=== PATIENT | male | born 1965 | race Caucasian/White ===

== ENCOUNTER 2016-10-08 19:38 | Emergency (ER) | payer MEDICAID | END 2016-10-08 20:11 | disposition left against medical advice (07) | LOC: ER 19:39 | DX: Z53.21 Procedure and treatment not carried out due to patient leaving prior to being seen by health care provider (principal) ==

== ENCOUNTER 2017-02-18 20:14 | Emergency (ER) | payer MEDICAID ==
[~2017-02-18] VITALS: Ht 175.3 cm; Wt 88.5 kg
--- NOTE | 2017-02-18 20:30 | NUR ---
PT CAME IN FOR "CHILLS" AND FEELS SICK AND RIGHT SIDE BACK PAIN. PT LOOKS PALE, LETHARGIC WITH SLIGHT FEVER. AAOX3. SAFETY AND COMFORT MEASURES PROVIDED. WILL MONITOR.
[2017-02-18] MEDS ORDERED: ONDANSETRON HCL/PF 4 MG/2 ML VIAL ONE (20:51)
[2017-02-18] MEDS ORDERED: IV NS 0.9% 1,000 ML ONE (20:51)
[2017-02-18] MEDS ORDERED: MORPHINE SULFATE INJ 4 MG/ML DISP.SYRIN ONE (20:51)
[2017-02-18] MEDS ORDERED: IV NS 0.9% 1,000 ML BAG IV ONE (21:00)
[2017-02-18] MEDS ORDERED: MORPHINE SULFATE INJ 2 MG/ML DISP.SYRIN IV ONE (21:00)
[2017-02-18] MEDS ORDERED: ONDANSETRON HCL/PF 4 MG/2 ML VIAL IVP ONE (21:00)
--- NOTE | 2017-02-18 21:00 | NUR ---
IV ACCESS STARTED. BLOOD DRAWN FOR LABS. PT MEDICATED ORDERED.
[2017-02-18 21:06] LABS: BASOPHILS % (AUTO) 0.4 % (0.0-2.0); EOSINOPHILS # (AUTO) 0.1 /CMM (0.0-0.7); LYMPHOCYTES # (AUTO) 1.8 /CMM (0.8-4.8); MONOCYTES # (AUTO) 0.9 /CMM (0.1-1.30); NEUTROPHILS # (AUTO) 5.5 /CMM (1.8-8.9); WHITE BLOOD COUNT (AUTO) 8.3 K/uL (4.3-11.0)
[2017-02-18 21:07] LABS: EOSINOPHILS % (AUTO) 1.3 % (0.0-6.0); HEMATOCRIT 31 % (39-51); LYMPHOCYTES % (AUTO) 22.1 % (20.0-44.0); MEAN CORPUSCULAR HEMOGLOBIN 25 PG (26.0-33.0); MEAN CORPUSCULAR HGB CONC 32 g/dl (31.0-36.0); MEAN CORPUSCULAR VOLUME 76 fL (80-96); MONOCYTES % (AUTO) 11.3 % (2.0-12.0); NEUTROPHILS % (AUTO) 64.9 % (43.0-81.0); PLATELET COUNT (AUTO) 543 /CMM (150-450); RDW COEFFICIENT OF VARIATION 20.6 (11.5-15.0); RED BLOOD CELL COUNT(AUTO) 4.07 MIL/uL (4.5-6.0)
[2017-02-18 21:08] LABS: CARBON DIOXIDE 28 mmol/L (21-32); CHLORIDE 103 mmol/L (98-107); CREATININE 1.2 mg/dL (0.6-1.3); GLUCOSE 109 mg/dL (74-106); POTASSIUM 3.7 mmol/L (3.5-5.1); SODIUM SERUM 136 mmol/L (136-145); UREA NITROGEN, BLOOD 20 mg/dL (7-18)
[2017-02-18 21:10] LABS: INR 1.02 (0.87-1.13); PROTHROMBIN TIME 10.6 SECS (9.5-12.7)
--- NOTE | 2017-02-18 21:10 | NUR ---
XRAY DONE AT BS.
[2017-02-18 21:13] LABS: ALANINE AMINOTRANSFERASE 42 U/L (12-78); ALBUMIN 2.3 g/dL (3.4-5.0); ALKALINE PHOSPHATASE 113 U/L (46-116); ASPARTATE AMINOTRANSFERASE 24 U/L (15-37); BILIRUBIN,TOTAL 0.3 mg/dL (0.2-1.0); TOTAL PROTEIN, SERUM 7.9 g/dL (6.4-8.2)
[2017-02-18 21:19] LABS: APPEARANCE,URINE Clear (CLEAR); BILIRUBIN,URINE Negative (NEGATIVE); BLOOD, URINE Trace-intact Ery/uL (NEGATIVE); COLOR,URINE Yellow (YELLOW); KETONES,URINE Negative (NEGATIVE); LEUKOCYTE ESTERASE ,URINE Negative (NEGATIVE); NITRITE, URINE Negative (NEGATIVE); PH,URINE 5.5 (5.0-8.0); PROTEIN,URINE Trace mg/dl (NEGATIVE); UGLUCOSE Negative (NEGATIVE); UROBILINOGEN,URINE 0.2 EU/dL (0.2)
[2017-02-18 21:24] LABS: BILIRUBIN,DIRECT 0.1 mg/dL (0.0-0.2)
[2017-02-18 21:29] LABS: TROPONIN I < 0.017 ng/mL (0.00-0.056)
[2017-02-18 21:32] LABS: BACTERIA,URINE Rare /HPF (None Seen); SQUAMOUS EPITHELIAL CELL,UR Rare /HPF (None Seen); WBC,URINE NONE SEEN /HPF (0-3)
[2017-02-18 21:33] LABS: HYALINE CASTS, URINE Rare /LPF (None Seen); MUCUS,URINE Few /LPF (None Seen)
--- NOTE | 2017-02-18 22:35 | NUR ---
IV removed. Catheter intact and site benign. Pressure and 4x4 applied to site. No bleeding noted.
--- NOTE | 2017-02-18 22:44 | NUR ---
Patient discharged to home in stable condition. Written and verbal after care instructions given. Patient verbalizes understanding of instruction.
[2017-02-18 22:45] VITALS: BP 137/88
== END 2017-02-18 22:47 | disposition home or self-care (01) ==
LOC: ER 20:17
DX: R10.32 Left lower quadrant pain (principal); Z88.1 Allergy status to other antibiotic agents; Z88.8 Allergy status to other drugs, medicaments and biological substances; Z90.5 Acquired absence of kidney; Z85.528 Personal history of other malignant neoplasm of kidney
CPT/HCPCS: 36415; 71010; 80048; 80076; 81001; 83605; 84484; 85025; 85730; 87040 ×2; 87086; 87186; 93005; 96361; 96374; 96375; 99285; A4606; J2270; J2405; J7030; Z7610; 81000-TC

== ENCOUNTER 2017-05-21 22:56 | Emergency (ER) | payer BC ==
[~2017-05-21] VITALS: Ht 175.3 cm; Wt 77.1 kg
[~2017-05-21 22:56] MED LIST: ASPI81TA2 PO; HYDR-3028 PO; HYDR-3658 PO; MORP30CP13 PO; TRAM50TA2 PO
[2017-05-22 00:42] LABS: BASOPHILS % (AUTO) 0.1 % (0.0-2.0); EOSINOPHILS % (AUTO) 0.4 % (0.0-6.0); HEMATOCRIT 26 % (39-51); LYMPHOCYTES # (AUTO) 0.9 /CMM (0.8-4.8); MEAN CORPUSCULAR HEMOGLOBIN 22 PG (26.0-33.0); MEAN CORPUSCULAR HGB CONC 31 g/dl (31.0-36.0); MEAN CORPUSCULAR VOLUME 72 fL (80-96); NEUTROPHILS # (AUTO) 7.8 /CMM (1.8-8.9); NEUTROPHILS % (AUTO) 80.5 % (43.0-81.0); PLATELET COUNT (AUTO) 523 /CMM (150-450); RDW COEFFICIENT OF VARIATION 23.6 (11.5-15.0); RED BLOOD CELL COUNT(AUTO) 3.59 MIL/uL (4.5-6.0); WHITE BLOOD COUNT (AUTO) 9.7 K/uL (4.3-11.0)
[2017-05-22 00:45] LABS: INR 1.17 (0.87-1.13); PROTHROMBIN TIME 12.7 SECS (9.5-12.7)
--- NOTE | 2017-05-22 01:04 | NUR ---
BIB FAMILY, INFORMED BY PRIMARY MD TO GO TO THE HOSPITAL FOR LOW HEMOGLOBIN OF 6.9. WARM TO TOUCH, CAP REFILL <3 SEC. PT IS ON THE MONITOR. A/O X3. ST AT 110 BPM. BP 130/69. PT IN BED. PT COMFORTABLE AND DENIES PAIN.
[2017-05-22] MEDS ORDERED: IV NS 0.9% 1,000 ML BAG IV ONE (01:30)
[2017-05-22 01:47] LABS: TROPONIN I < 0.017 ng/mL (0.00-0.056)
[2017-05-22 01:48] LABS: CALCIUM, SERUM 9.7 mg/dL (8.5-10.1); CARBON DIOXIDE 25 mmol/L (21-32); CHLORIDE 101 mmol/L (98-107); GLUCOSE 104 mg/dL (74-106); POTASSIUM 4.3 mmol/L (3.5-5.1); SODIUM SERUM 137 mmol/L (136-145); UREA NITROGEN, BLOOD 18 mg/dL (7-18)
[2017-05-22] MEDS ORDERED: ONDANSETRON HCL/PF 4 MG/2 ML VIAL IV ONE (02:30)
[2017-05-22] MEDS ORDERED: MORPHINE SULFATE INJ 2 MG/ML DISP.SYRIN IV ONE ×2 (02:30→07:30)
[2017-05-22] MEDS ORDERED: IOHEXOL-350 100 ML VIAL IV ONE (02:52)
[2017-05-22] MEDS ORDERED: IV NS 0.9% 0 ML IV ONE (02:52)
[2017-05-22] MEDS ORDERED: LORAZEPAM INJ 2 MG/ML VIAL ONE (03:27)
[2017-05-22] MEDS ORDERED: LORAZEPAM INJ 2 MG/ML VIAL IV ONE (03:30)
--- NOTE | 2017-05-22 04:50 | NUR ---
PT TAKEN TO VQ SCAN.
[2017-05-22] MEDS ORDERED: MORPHINE SULFATE INJ 4 MG/ML DISP.SYRIN ONE (07:19)
[2017-05-22 07:55] VITALS: BP 122/83
[2017-05-22 08:04] LABS: APPEARANCE,URINE SL CLOUDY (CLEAR); BILIRUBIN,URINE NEGATIVE (NEGATIVE); BLOOD, URINE NEGATIVE Ery/uL (NEGATIVE); COLOR,URINE YELLOW (YELLOW); KETONES,URINE NEGATIVE (NEGATIVE); LEUKOCYTE ESTERASE ,URINE NEGATIVE (NEGATIVE); NITRITE, URINE NEGATIVE (NEGATIVE); PROTEIN,URINE TRACE mg/dl (NEGATIVE); UGLUCOSE NEGATIVE (NEGATIVE); UROBILINOGEN,URINE 0.2 EU/dL (0.2)
[2017-05-22 08:21] LABS: BACTERIA,URINE Rare /HPF (None Seen); RBC,URINE 0-2 /HPF (0-2); SQUAMOUS EPITHELIAL CELL,UR Rare /HPF (None Seen); WBC,URINE 0-2 /HPF (0-3)
[2017-05-22 08:40] LABS: BAND % (MANUAL) 1 % (0.0-5.0); LYMPHOCYTES % (MANUAL) 10 % (16-48); MONOCYTES % (MANUAL) 7 % (0-11.0); NEUTROPHILS % (MANUAL) 82 (42-76)
[2017-05-22 14:34] LABS: ALANINE AMINOTRANSFERASE 22 U/L (12-78); ALBUMIN 1.6 g/dL (3.4-5.0); ALKALINE PHOSPHATASE 177 U/L (46-116); ASPARTATE AMINOTRANSFERASE 33 U/L (15-37); BILIRUBIN,DIRECT 0.1 mg/dL (0.0-0.2); BILIRUBIN,TOTAL 0.2 mg/dL (0.2-1.0); TOTAL PROTEIN, SERUM 8.4 g/dL (6.4-8.2)
== END 2017-05-22 07:56 | disposition home or self-care (01) ==
LOC: ER 23:01
DX: D64.9 Anemia, unspecified (principal); C78.00 Secondary malignant neoplasm of unspecified lung; C64.9 Malignant neoplasm of unspecified kidney, except renal pelvis; C79.51 Secondary malignant neoplasm of bone; Z79.82 Long term (current) use of aspirin; Z85.528 Personal history of other malignant neoplasm of kidney; Z88.1 Allergy status to other antibiotic agents; Z88.8 Allergy status to other drugs, medicaments and biological substances
CPT/HCPCS: 36415 ×2; 71010; 78582; 80048; 80076; 81001; 83605; 84484; 85025; 85730; 86850; 87040 ×2; 87081; 87086; 93005; 96361; 96374; 96375; 96376; 99285; A4606; A9540; A9567; J2060; J2270 ×2; J7030; Z7610; 81000-TC; J7050; Q9967

== ENCOUNTER 2017-05-27 11:00 | Emergency (ER) | payer BC, MEDICAID ==
--- NOTE | 2017-05-27 11:38 | NUR ---
JOHN FROM HOME DUE TO SOB AND WEAKNESS X 10 DAYS. PATIENT IS AAO4. APPEARS IN NO APPARENT DISTRESS. VERBALIZED N/V EVERYDAY. PATIENT IS AFEBRILE. VSS
--- NOTE | 2017-05-27 11:38 | NUR ---
Note reginorachid in EDM - 05/27/17 at 1154 by MEGHA JOHN AND ABDIEL FROM [facility] FOR PSYCE EVALUATION. PATIENT VERBALIZED " I WANNA JUMPED ON A TRUCK" PT IS AAO3. APPEARS IN NO APPARENT DISTRESS. AFEBRILE. VSS
--- NOTE | 2017-05-27 11:56 | NUR ---
MD [place] AT BS
[2017-05-27 12:05] LABS: BASOPHILS % (AUTO) 0.2 % (0.0-2.0); EOSINOPHILS # (AUTO) 0.1 /CMM (0.0-0.7); EOSINOPHILS % (AUTO) 0.7 % (0.0-6.0); HEMATOCRIT 23 % (39-51); HEMOGLOBIN 7.3 g/dL (13.5-17.5); LYMPHOCYTES # (AUTO) 1.1 /CMM (0.8-4.8); LYMPHOCYTES % (AUTO) 11.9 % (20.0-44.0); MEAN CORPUSCULAR HEMOGLOBIN 23 PG (26.0-33.0); MEAN CORPUSCULAR HGB CONC 33 g/dl (31.0-36.0); MEAN CORPUSCULAR VOLUME 70 fL (80-96); MONOCYTES % (AUTO) 10.6 % (2.0-12.0); NEUTROPHILS % (AUTO) 76.6 % (43.0-81.0); PLATELET COUNT (AUTO) 559 /CMM (150-450); RED BLOOD CELL COUNT(AUTO) 3.21 MIL/uL (4.5-6.0); WHITE BLOOD COUNT (AUTO) 9.2 K/uL (4.3-11.0)
[2017-05-27 12:06] LABS: CALCIUM, SERUM 9.1 mg/dL (8.5-10.1); CARBON DIOXIDE 26 mmol/L (21-32); CHLORIDE 101 mmol/L (98-107); CREATININE 0.8 mg/dL (0.6-1.3); GLUCOSE 103 mg/dL (74-106); POTASSIUM 3.7 mmol/L (3.5-5.1); SODIUM SERUM 135 mmol/L (136-145); UREA NITROGEN, BLOOD 17 mg/dL (7-18)
[2017-05-27 12:15] LABS: TROPONIN I < 0.017 ng/mL (0.00-0.056)
[2017-05-27 13:07] LABS: BAND % (MANUAL) 1 % (0.0-5.0); LYMPHOCYTES % (MANUAL) 9 % (16-48); MONOCYTES % (MANUAL) 7 % (0-11.0); NEUTROPHILS % (MANUAL) 83 (42-76)
[2017-05-27] MEDS ORDERED: IBUP-1482 PO (15:39)
[2017-05-27] MEDS ORDERED: CHLO25TA23 PO (15:39)
[2017-05-27] MEDS ORDERED: PROC10TA PO (15:39)
[2017-05-27] MEDS ORDERED: HYDR-548 PO (15:39)
[2017-05-27] MEDS ORDERED: CHOL100044 PO (15:39)
[2017-05-27] MEDS ORDERED: MORP30TA PO (15:39)
[2017-05-27] MEDS ORDERED: METO-295 PO (15:39)
[2017-05-27] MEDS ORDERED: ACET-2605 PO (15:39)
--- NOTE | 2017-05-27 15:40 | NUR ---
STARTED BLOOD TRANSFUSION @80CC/HR T-98.1 P 107 BP 107/60 R18
--- NOTE | 2017-05-27 16:03 | NUR ---
CONT ON BLOOD TRANSFUSION. NO ADVERSE REACTION NOTED
[2017-05-27 18:11] VITALS: BP 124/80
--- NOTE | 2017-05-27 18:12 | NUR ---
Patient discharged to home in stable condition. Written and verbal after care instructions given. Patient verbalizes understanding of instruction.
== END 2017-05-27 18:13 | disposition home or self-care (01) ==
LOC: ER 11:03
DX: C64.9 Malignant neoplasm of unspecified kidney, except renal pelvis (principal); C79.51 Secondary malignant neoplasm of bone; D64.81 Anemia due to antineoplastic chemotherapy; Z79.82 Long term (current) use of aspirin; Z85.528 Personal history of other malignant neoplasm of kidney; R00.0 Tachycardia, unspecified; Z88.8 Allergy status to other drugs, medicaments and biological substances; Z88.1 Allergy status to other antibiotic agents; Z91.041 Radiographic dye allergy status
CPT/HCPCS: 36415; 71010-TC; 80048-TC; 82962-TC; 84484-TC; 85025-TC; 86850-TC; 86921-TC; A4606; P9016-BL; Z7610

== ENCOUNTER 2017-07-07 14:05 | Emergency (ER) | payer BC ==
[~2017-07-07] VITALS: Ht 175.3 cm; Wt 59.0 kg
[~2017-07-07 14:05] MED LIST changes: +ACET-2605 PO; +CHLO25TA23 PO; +CHOL100044 PO; -HYDR-3028 PO; -HYDR-3658 PO; +HYDR-548 PO; +IBUP-1482 PO; +METO-295 PO; -MORP30CP13 PO; +MORP30TA PO; +PROC10TA PO; -TRAM50TA2 PO
--- NOTE | 2017-07-07 14:10 | NUR ---
BIB FAMILY FROM HOME DT SOB AND GENERALIZED WEAKNESS. PATIENT IS AAO4. APPEARS IN MILD DISTRESS. RESPIRATION EVEN AND UNLABORED. PATIENT SATING 95% ON ROOM AIR, PATIENT HAS METASTASIS KIDNEY CANCER. PATIENT'S VSS AT THIS TIME.
--- NOTE | 2017-07-07 14:30 | NUR ---
LYNETTE IV ACCESSED TO L[facility]NETTE. BLOOD SAMPLE SENT TO LAB
[2017-07-07 14:51] LABS: BASOPHILS % (AUTO) 0.1 % (0.0-2.0); EOSINOPHILS % (AUTO) 0.2 % (0.0-6.0); HEMATOCRIT 22 % (39-51); LYMPHOCYTES # (AUTO) 1.1 /CMM (0.8-4.8); LYMPHOCYTES % (AUTO) 8.3 % (20.0-44.0); MEAN CORPUSCULAR HEMOGLOBIN 22 PG (26.0-33.0); MEAN CORPUSCULAR HGB CONC 31 g/dl (31.0-36.0); MEAN CORPUSCULAR VOLUME 71 fL (80-96); MONOCYTES # (AUTO) 1.1 /CMM (0.1-1.30); MONOCYTES % (AUTO) 8.5 % (2.0-12.0); NEUTROPHILS # (AUTO) 10.6 /CMM (1.8-8.9); NEUTROPHILS % (AUTO) 82.9 % (43.0-81.0); PLATELET COUNT (AUTO) 444 /CMM (150-450); RDW COEFFICIENT OF VARIATION 20.2 (11.5-15.0); RED BLOOD CELL COUNT(AUTO) 3.13 MIL/uL (4.5-6.0); WHITE BLOOD COUNT (AUTO) 12.8 K/uL (4.3-11.0)
[2017-07-07 14:58] LABS: CALCIUM, SERUM 9.6 mg/dL (8.5-10.1); CREATININE 0.7 mg/dL (0.6-1.3); POTASSIUM 4.1 mmol/L (3.5-5.1)
[2017-07-07 15:02] LABS: INR 1.16 (0.87-1.13); PROTHROMBIN TIME 12.1 SECS (9.5-12.7)
[2017-07-07 15:09] LABS: ALBUMIN 1.7 g/dL (3.4-5.0); BILIRUBIN,DIRECT 0.2 mg/dL (0.0-0.2); BILIRUBIN,TOTAL 0.6 mg/dL (0.2-1.0); TOTAL PROTEIN, SERUM 8.7 g/dL (6.4-8.2)
--- NOTE | 2017-07-07 15:47 | NUR ---
CALLED PANEL FOR PT ADMIT. WAS PAGED.
--- NOTE | 2017-07-07 15:54 | NUR ---
BLOOD NOT READY YET
[2017-07-07] MEDS ORDERED: PANTOPRAZOLE 40 MG VIAL ONE (15:58)
--- NOTE | 2017-07-07 15:59 | NUR ---
DR. MODI AT BEDSIDE
[2017-07-07] MEDS ORDERED: PANTOPRAZOLE 40 MG VIAL IV ONE (16:00)
[2017-07-07 16:17] LABS: BAND % (MANUAL) 1 % (0.0-5.0); LYMPHOCYTES % (MANUAL) 9 % (16-48); MONOCYTES % (MANUAL) 6 % (0-11.0); NEUTROPHILS % (MANUAL) 84 (42-76)
--- NOTE | 2017-07-07 19:03 | NUR ---
Patient does not wish to proceed with medical care recommended by Dr. CLOUD. Patient given information related to possible complications, up to and including , which could occur as a result of leaving the hospital at this time. Patient verbalizes understanding of risks involved due to leaving against medical advice. Patient has signed AMA form. PATIENT AND PATIENT'S FAMILY SPOKE WTIH MD MODI AND MD CLOUD, AWARE OF RISKS OF LEAVING HOSPITAL AGAINTS MEDICAL ADVICE. PER PATIENT AND PATIENT'S SON, PT WILL SEE HIS PMD THIS WEEK. BOTH VERBALIZED UNDERSTANDING.
--- NOTE | 2017-07-07 19:03 | NUR ---
PATIENT COMPLETED BLOOD TRANSFUSION
[2017-07-07 19:05] VITALS: BP 134/80
== END 2017-07-07 19:06 | disposition left against medical advice (07) ==
LOC: ER 14:06
DX: D64.9 Anemia, unspecified (principal); R79.1 Abnormal coagulation profile; C78.00 Secondary malignant neoplasm of unspecified lung; C79.51 Secondary malignant neoplasm of bone; Z79.82 Long term (current) use of aspirin; Z85.118 Personal history of other malignant neoplasm of bronchus and lung; Z85.528 Personal history of other malignant neoplasm of kidney; Z88.1 Allergy status to other antibiotic agents; Z88.8 Allergy status to other drugs, medicaments and biological substances; Z53.20 Procedure and treatment not carried out because of patient's decision for unspecified reasons
CPT/HCPCS: 36415; 80048; 80076; 82272; 85025; 85730; 86850; 86921 ×2; 87081; 93005; 96374; 99285; A4606; C9113; J7050; P9016 ×2; Z7610